=== PATIENT | male | born 1975 | race Caucasian/White ===

== ENCOUNTER → 2017-01-21 | Outpatient (CLI) | payer OTHER ==
[~2017-01-21] MED LIST: ASPI325T PO; CLOP75 PO; LAMO100 PO; LEVO100T4 PO
[2017-01-22 12:15] LABS: SEMEN CONTAINER TYPE 50 mL Conical (()); SPERM/ML 0 sperm seen x10(6) (>=15.0); STUDY TYPE Semen (())
== END ==
LOC: CLAB 01-18 10:23
DX: Z98.52 Vasectomy status (principal)
CPT/HCPCS: 89310

== ENCOUNTER 2017-03-20 13:17 | Emergency (ER) | payer OTHER ==
[~2017-03-20] VITALS: Ht 190.5 cm; Wt 95.0 kg
[2017-03-20 13:19] VITALS: BP 136/80; PULSE 72; RESP 20; TEMP 98.4; O2SAT 98
--- NOTE | 2017-03-20 13:24 | PD ---
Physical Exam Date Seen by Provider: Mar 20, 2017 Time Seen by Provider: 13:21 Narrative 41 yo male here for lightheadeness. Has had this since yesterday. History of stroke with PFO surgery. States that he feels lightheaded with standing. Feels tingling on arms. Concerned because it still present and his history. Vitals are stable in triage. Awaiting Bed placement. [facility] Medical Record Reviewed: Yes Supervised Visit with SHELIA: No Karlos Bullock Mar 20, 2017 13:24
[2017-03-20 13:33] VITALS: BP 129/63; PULSE 72; RESP 15; TEMP 98.1; O2SAT 99
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
[2017-03-20] MEDS ORDERED: LAMO25TA PO (13:38)
[2017-03-20] MEDS ORDERED: ASPI325T PO (13:38)
[2017-03-20] MEDS ORDERED: LEVO100T5 PO (13:38)
[2017-03-20] MEDS ORDERED: SODIUM CHLORIDE 0.9% FLUSH 10 ML FLUSH IVF PRN (14:00)
[2017-03-20 14:08] VITALS: O2SAT 98
[2017-03-20 14:29] LABS: AUTOMATED NEUTROPHIL # 1.9 TH/MM3 (1.8-7.7); BASOPHIL # 0.1 TH/MM3 (0-0.2); BASOPHIL % 1.8 % (0.0-2.0); EOSINOPHIL # 0.2 TH/MM3 (0-0.4); HEMATOCRIT 38.1 % (39.0-51.0); HEMO FLAGS DIFF FINAL; LYMPH % 35.6 % (9.0-44.0); LYMPHOCYTE # 1.5 TH/MM3 (1.0-4.8); MEAN CELL VOLUME 90.9 FL (80.0-100.0); MEAN CORPUSCULAR HEMOGLOBIN 30.9 PG (27.0-34.0); MONO % 10.5 % (0.0-8.0); NEUT % 47.1 % (16.0-70.0); PLATELET COUNT 261 TH/MM3 (150-450); RED BLOOD COUNT 4.19 MIL/MM3 (4.50-5.90); RED CELL DISTRIBUTION WIDTH 12.9 % (11.6-17.2); WHITE BLOOD COUNT 4.1 TH/MM3 (4.0-11.0)
[2017-03-20 14:40] LABS: ANION GAP 8 MEQ/L (5-15); APTT (PATIENT) 29.6 SEC (24.3-30.1); BICARBONATE 29.2 MEQ/L (21.0-32.0); BLOOD UREA NITROGEN 10 MG/DL (7-18); CHLORIDE 105 MEQ/L (98-107); GLOMERULAR FILTRATION RATE 74 ML/MIN (>89); INTERNATIONAL NORMALIZED RATIO 1.1 RATIO; POTASSIUM 3.5 MEQ/L (3.5-5.1); PROTHROMBIN TIME - PATIENT 11.7 SEC (9.8-11.6); SODIUM (NA) 142 MEQ/L (136-145)
--- NOTE | 2017-03-20 14:54 | RADRPT ---
EXAM DATE/TIME: 03/20/2017 14:03 [facility] COMPARISON: CHEST SINGLE AP, February 22, 2015, 11:18. INDICATIONS : Dizziness. MEDICAL HISTORY : Stroke. SURGICAL HISTORY : PFO. ENCOUNTER: Initial ACUITY: 1 day PAIN SCORE: 0/10 LOCATION: Bilateral chest FINDINGS: A single view of the chest demonstrates the lungs to be symmetrically aerated without evidence of mas s, infiltrate or effusion. The cardiomediastinal contours are unremarkable. Osseous structures are intact. CONCLUSION: No acute disease. Adryan Hodgson MD on March 20, 2017 at 14:53 Board Certified Radiologist. This report was verified electronically.
[2017-03-20 14:55] LABS: CREATINE KINASE 96 U/L (39-308)
[2017-03-20 16:39] LABS: BLOOD, URINE NEG (NEG); COMMENT (UR) CULT NOT INDICATED; CULTURE IF INDICATED CULT NOT INDICATED; GLUCOSE,URINE NEG (NEG); KETONE, URINE NEG (NEG); NITRITE,URINE NEG (NEG); PH, URINE 7.5 (5.0-8.5); URINE COLOR LIGHT-YELLOW (YELLW/STRAW)
--- NOTE | 2017-03-20 17:22 | RADRPT ---
EXAM DATE/TIME: 03/20/2017 16:56 [facility] COMPARISON: CT BRAIN W/O CONTRAST, February 13, 2015, 15:46. INDICATIONS : Dizziness with lightheadedness since yesterday. RADIATION DOSE: 36.33 CTDIvol (mGy) MEDICAL HISTORY : Hypothyroidism. CVA SURGICAL HISTORY : None. ENCOUNTER: Initial ACUITY: 2 days PAIN SCALE: 3/10 LOCATION: Bilateral cranial TECHNIQUE: Multiple contiguous axial images were obtained of the head. Using automated exposure control and adj ustment of the mA and/or kV according to patient size, radiation dose was kept as low as reasonably a chievable to obtain optimal diagnostic quality images. DICOM format image data is available electro nically for review and comparison. FINDINGS: CEREBRUM: The ventricles are normal for age. No evidence of midline shift, mass lesion, hemorrhage or acute in farction. No extra-axial fluid collections are seen. POSTERIOR FOSSA: The cerebellum and brainstem are intact. The 4th ventricle is midline. The cerebellopontine angle i s unremarkable. EXTRACRANIAL: Nodular mucosal thickening is identified in the nasal fossa and paranasal sinuses. The visualized por tion of the orbits is intact. SKULL: The calvaria is intact. No evidence of skull fracture. CONCLUSION: 1. No evidence of acute or significant intracranial process. 2. Nodular mucosal thickening through the paranasal sinuses characteristic of a sinonasal polyposis s yndrome. Adryan Hodgson MD on March 20, 2017 at 17:19 Board Certified Radiologist. This report was verified electronically.
[2017-03-20 17:32] VITALS: BP 121/71
[2017-03-20 17:33] VITALS: BP_SYST 122; BP_SYST 133; BP_DIAS 85; BP_DIAS 86
[2017-03-20] MEDS ORDERED: MECL-62 PO (17:35)
--- NOTE | 2017-03-21 11:33 | EKG ---
Date Performed: 03/20/2017 Time Performed: 14:01:14 PTAGE: 41 years EKG: Sinus rhythm NORMAL ECG Compared to prior tracing no significant change PREVIOUS TRACING : 02/22/2015 12.20 DOCTOR: Trevon Long Interpretating Date/Time 03/21/2017 11:32:25
== END 2017-03-20 18:26 | disposition home or self-care (01) ==
LOC: NEPE 13:17
DX: R42 Dizziness and giddiness (principal); Z86.73 Personal history of transient ischemic attack (TIA), and cerebral infarction without residual deficits; E03.9 Hypothyroidism, unspecified; Z87.891 Personal history of nicotine dependence
CPT/HCPCS: 70450; 71010; 80048; 81001; 82550; 84484; 85025; 85610; 85730; 93005

== ENCOUNTER → 2017-05-14 | Outpatient (CLI) | payer OTHER ==
[~2017-05-14] MED LIST changes: -CLOP75 PO; -LAMO100 PO; +LAMO25TA PO; -LEVO100T4 PO; +LEVO100T5 PO; +MECL-62 PO
== END ==
LOC: CLAB 10:57
DX: Z98.52 Vasectomy status (principal)